=== PATIENT | female | born 1955 | race Asian ===

== ENCOUNTER 2017-07-23 17:11 | Emergency (ER) | payer OTHER ==
[~2017-07-23] VITALS: Ht 134.6 cm; Wt 85.9 kg
[~2017-07-23 17:11] MED LIST: ASPI-556 PO; HYDR-2924 PO; METO-391 PO
[2017-07-23] MEDS ORDERED: LISI2.5T2 PO (17:24)
[2017-07-23 18:10] LABS: BILIRUBIN,URINE NEGATIVE (NEGATIVE); GLUCOSE, URINE (UA) NEGATIVE (NEGATIVE); KETONES,URINE NEGATIVE (NEGATIVE); NITRATE,URINE NEGATIVE (NEGATIVE); OCCULT BLOOD,URINE SMALL (NEGATIVE); PROTEIN,URINE NEGATIVE (NEGATIVE); UROBILINOGEN,URINE 0.2 mg/dL (<=1.0)
[2017-07-23 18:25] LABS: APPEARANCE,URINE SLIGHTLY CLOUDY (CLEAR)
[2017-07-23 18:26] LABS: BACTERIA,URINE Few /HPF (None Seen); LEUKOCYTE ESTERASE ,URINE MODERATE (NEGATIVE); SQUAMOUS EPITHELIAL CELL,UR Few /LPF (None Seen)
[2017-07-23 20:44] VITALS: BP 154/94
== END 2017-07-23 21:31 | disposition home or self-care (01) ==
LOC: EMS 17:14
DX: N39.0 Urinary tract infection, site not specified (principal); I10 Essential (primary) hypertension; F17.210 Nicotine dependence, cigarettes, uncomplicated; Z79.82 Long term (current) use of aspirin
CPT/HCPCS: 87086; 99284

== ENCOUNTER 2018-11-05 10:32 | Emergency (ER) | payer OTHER ==
[~2018-11-05] VITALS: Ht 157.5 cm; Wt 111.4 kg
[~2018-11-05 10:32] MED LIST changes: -METO-391 PO
[2018-11-05] MEDS ORDERED: METO50 PO (11:11)
[2018-11-05 13:44] LABS: INFLUENZA TYPE A NEGATIVE FOR TYPE A (NEGATIVE); INFLUENZA TYPE B NEGATIVE FOR TYPE B (NEGATIVE)
[2018-11-05] MEDS ORDERED: GuaiFENesin/D-METHORPHAN [SUGAR-FREE] 200-20MG/10 ML SYRUP UDCUP PO ONE (13:45)
[2018-11-05] MEDS ORDERED: ALBUTEROL SULFATE 2.5 MG/0.5 ML NEB SOLUTION NEB ONE (14:45)
[2018-11-05] MEDS ORDERED: IPRATROPIUM BROMIDE 0.5 MG/2.5 ML NEB SOLUTION NEB ONE (14:45)
[2018-11-05 15:58] VITALS: BP 144/93
== END 2018-11-05 16:03 | disposition home or self-care (01) ==
LOC: EMS 10:32
DX: J18.9 Pneumonia, unspecified organism (principal); I10 Essential (primary) hypertension; F17.210 Nicotine dependence, cigarettes, uncomplicated; Z79.82 Long term (current) use of aspirin
CPT/HCPCS: 87804; 94640